=== PATIENT | male | born 2000 | race Caucasian/White ===

== ENCOUNTER 2022-04-28 00:08 | Emergency (ER) | payer OTHER ==
[~2022-04-28 00:08] MED LIST: AMOXICILLIN500 MG PO; BACTROBAN NASAL1 GM TOP; BENTYL10 MG PO; VOLTAREN **OUT75 MG PO; ZOFRAN ODT4 MG SL
[2022-04-28 00:45] LABS: BASOPHIL 0.5 % (0-2); EOSINOPHIL 0.5 % (0-5); HCT 44.1 % (42.0-52.0); HGB 14.9 g/dl (13.2-18.0); MCH 29.3 pg (25.0-31.0); MCHC 33.8 g/dL (32.0-36.0); MCV 86.8 fL (78.0-100.0); MONOCYTE 4.7 % (0-12); NEUTROPHIL 62.8 % (41-80); NRBC 0; PLT 270 K/uL (150-400); RBC 5.08 M/uL (4.70-6.00); RDW 13.7 % (11.5-14.0); WBC 12.8 K/uL (4.0-10.5)
[2022-04-28 01:42] LABS: ACETAMINOPHEN (TYLENOL) < 2.0 ug/mL (10.0-30.0); ALBUMIN 4.3 g/dL (3.4-5.0); ALKALINE PHOSHATASE 97 U/L (46-116); ALT 19 U/L (16-63); AST 22 U/L (15-37); BILIRUBIN - TOTAL 0.5 mg/dL (0.2-1.0); BUN 12 mg/dL (7-18); BUN/CREAT RATIO (CALC) 12.5 RATIO; CHLORIDE 100 mmol/L (98-107); CO2 (BICARBONATE) 25 mmol/L (21-32); CREATININE 0.96 mg/dL (0.67-1.17); GLOBULIN (CALCULATION) 3.4 g/dL; GLUCOSE 103 mg/dL (74-106); POTASSIUM 3.4 mmol/L (3.5-5.1); TOTAL PROTEIN 7.7 g/dL (6.4-8.2)
[2022-04-28] MEDS ORDERED: NARCAN IN (01:47)
== END 2022-04-28 02:00 | disposition home or self-care (01) ==
LOC: FER 00:08
PROVIDERS: Emergency Medicine
DX: T40.2X1A Poisoning by other opioids, accidental (unintentional), initial encounter (principal); R41.82 Altered mental status, unspecified; F17.200 Nicotine dependence, unspecified, uncomplicated; Z28.310 Unvaccinated for COVID-19
CPT/HCPCS: 36415; 80053; 85025; 99285; G0480

== ENCOUNTER 2022-05-05 16:10 | Emergency (ER) | payer OTHER ==
[~2022-05-05 16:10] MED LIST changes: +NARCAN IN
== END 2022-05-05 17:22 | disposition home or self-care (01) ==
LOC: FER 16:10
DX: S93.402A Sprain of unspecified ligament of left ankle, initial encounter (principal); F17.210 Nicotine dependence, cigarettes, uncomplicated; Z28.310 Unvaccinated for COVID-19; X58.XXXA Exposure to other specified factors, initial encounter; Y93.67 Activity, basketball
CPT/HCPCS: 73610